=== PATIENT | male | born 1980 | race Caucasian/White ===

== ENCOUNTER 2017-07-26 21:50 | Emergency (ER) | payer MEDICAID ==
[~2017-07-26] VITALS: Ht 182.9 cm; Wt 62.2 kg
[2017-07-26] MEDS ORDERED: HYDROcodone/acetaminophen 10/325mg tab PO ONE (23:05)
[2017-07-26] MEDS ORDERED: sulfamethoxazole/trimethoprim DS (800/160mg) tablet PO ONE (23:05)
[2017-07-26] MEDS ORDERED: LIDOcaine 1.5% w/epinephrine 1:200,000 5ml ampul IJ ONE (23:05)
[2017-07-26] MEDS ORDERED: naproxen 500mg tablet PO ONE (23:05)
[2017-07-26] MEDS ORDERED: TETanus/Pertussis (Acell)/Diphther VAC/PF (Tdap-Adult) 0.5ml syringe IMVAC ONE (23:05)
[2017-07-27] MEDS ORDERED: SULF1TAB49 PO (00:06)
[2017-07-27] MEDS ORDERED: HYDR-565 PO (00:06)
[2017-07-27 00:20] VITALS: BP 124/73
== END 2017-07-27 00:21 | disposition home or self-care (01) ==
LOC: ER 21:52
DX: L02.413 Cutaneous abscess of right upper limb (principal); T63.301A Toxic effect of unspecified spider venom, accidental (unintentional), initial encounter; L03.113 Cellulitis of right upper limb; L02.433 Carbuncle of right upper limb; F17.210 Nicotine dependence, cigarettes, uncomplicated; Z71.6 Tobacco abuse counseling; Z79.899 Other long term (current) drug therapy; Y92.89 Other specified places as the place of occurrence of the external cause
CPT/HCPCS: 10060; 90471; 90715; 99284; 99406; A6266; A6449; J3490; 99283